=== PATIENT | female | born 1940 | race Caucasian/White ===

== ENCOUNTER → 2018-07-23 | Outpatient (CLI) | payer MEDICARE, BC, OTHER ==
--- NOTE | 2018-07-25 19:45 | HOLTMON ---
[facility] Test Date: 2018-07-23 Pat Name: KEN KENT Department: Room: - Gender: Scientific Technical Writer: Eleni Ash/JAVIER LAND : 1940 Requested By: [facility] Order Number: [id number] Reading MD: Mauro Rivas Interpretive Statements MOTHER-ANGINA Diary entries include an episode of dizziness and dyspnea and another episode of dyspnea climbing stairs; sinus rhythm seen with both episodes. Heart rate variability was normal. There were occasional rare PVC's and occasional PAC's with a couple of supraventricular runs with a maximum HR of 150; these were of short duration. No significant ST events or pauses. No atrial fibrillation was seen. Electronically Signed On 07-25-2018 19:45:43 EDT by Mauro Rivas
== END ==
LOC: M EKG 10:40
PROVIDERS: ATTEND Family Medicine
DX: Z86.79 Personal history of other diseases of the circulatory system (principal)

== ENCOUNTER 2019-02-19 07:56 | Outpatient (RCR) | payer MEDICARE, BC, OTHER | END 2019-02-23 | LOC: M ST 07:56 | PROVIDERS: ATTEND Family Medicine | DX: Z51.89 Encounter for other specified aftercare (principal); R47.9 Unspecified speech disturbances; R47.81 Slurred speech ==

== ENCOUNTER 2019-03-05 14:50 | Outpatient (RCR) | payer MEDICARE, BC, OTHER | END 2019-03-26 | LOC: M ST 14:50 | PROVIDERS: ATTEND Family Medicine | DX: Z51.89 Encounter for other specified aftercare (principal); R47.9 Unspecified speech disturbances; R47.89 Other speech disturbances ==

== ENCOUNTER 2023-05-14 16:24 | Inpatient (IN) | payer MEDICARE, BC, OTHER ==
[~2023-05-14] VITALS: Ht 172.7 cm; Wt 77.4 kg
[2023-05-14] MEDS: ASPIRIN 81MG CHEW TABLET PO ONE (17:23)
[2023-05-14] MEDS: NS 500 ML IV ONE (17:24)
[2023-05-14] MEDS: methylPREDNISolone 125MG 2ML VIAL IV ONE (17:24)
[2023-05-14 17:33] LABS: ABG BASE EXCESS 1.8 (-2.0-2.0); ABG HCO3 24.6 MMOL/L (22.0-26.0); ABG PARTIAL PRESSURE CO2 33.1 mmHg (35.0-45.0); ABG PARTIAL PRESSURE O2 64.5 mmHg (75.0-100.0); ABG TOTAL CO2 25.6 MMOL/L (23.0-31.0); ABG pH (ARTERIAL) 7.489 UNITS (7.350-7.450)
[2023-05-14 17:42] LABS: BASO % 0.1 % (0.0-1.0); HEMATOCRIT 39.6 % (36.0-47.0); HEMOGLOBIN 13.6 g/dl (12.0-15.5); LYMPH # 0.9 10^3/uL (1.5-5.0); LYMPH % 10.8 % (24.0-44.0); MEAN CORPUSCULAR HEMOGLOBIN 31.5 pg (27.0-33.0); MEAN CORPUSCULAR HGB CONC 34.3 g/dl (32.0-36.5); MEAN CORPUSCULAR VOLUME 91.7 fl (80.0-96.0); MONO # 0.7 10^3/uL (0.0-0.8); MONO % 9.4 % (2.0-8.0); NEUTROPHILS # 6.3 10^3/uL (1.5-8.5); NEUTROPHILS % 79.4 % (36.0-66.0); PLATELET COUNT, AUTOMATED 185 10^3/uL (150-450); RED BLOOD COUNT 4.32 10^6/uL (4.00-5.40); WHITE BLOOD COUNT 7.9 10^3/uL (4.0-10.0)
[2023-05-14 17:49] LABS: ALBUMIN 3.2 G/DL (3.2-5.2); ALKALINE PHOSPHATASE 84 U/L (46-116); ALT/SGPT 21 U/L (7.0-40); AST/SGOT 17 U/L (<34); BILIRUBIN,DIRECT 0.3 MG/DL (<0.4); BILIRUBIN,TOTAL 0.8 MG/DL (0.3-1.2); BLOOD UREA NITROGEN 10 MG/DL (9-23); CALCIUM LEVEL 9.5 MG/DL (8.3-10.6); CARBON DIOXIDE LEVEL 26 MMOL/L (20-31); CHLORIDE LEVEL 102 MMOL/L (98-107); CK-MB VALUE MASS 1.1 NG/ML (<3.6); CPK CREATINE PHOSPHOKINASE 101 U/L (34-145); GLOMERULAR FILTRATION RATE > 60.0 (>32); GLUCOSE, FASTING 122 MG/DL (74-106); MAGNESIUM LEVEL 1.5 MG/DL (1.8-2.4); MB/CK RELATIVE INDEX 1.08 (< OR =4); POTASSIUM SERUM 3.7 MMOL/L (3.5-5.1); SODIUM LEVEL 136 MMOL/L (136-145); TOTAL PROTEIN 6.4 G/DL (5.7-8.2)
[2023-05-14 17:51] LABS: THYROID STIMULATING HORMONE 1.024 uIU/ML (0.55-4.78); THYROXINE (T4) 7.2 UG/DL (4.5-10.9)
[2023-05-14 17:54] VITALS: BP 140/71
[2023-05-14] MEDS: METOPROLOL TART 25 MG TABLET PO ONE (17:54)
[2023-05-14 18:00] LABS: PROCALCITONIN 0.06 ng/ml
[2023-05-14 18:52] LABS: CK-MB VALUE MASS 1.1 NG/ML (<3.6)
[2023-05-14 18:54] LABS: MB/CK RELATIVE INDEX 1.18 (< OR =4)
[2023-05-14] MEDS: MAG SULF 1GM/100ML (MAG RUN) 1 GM in IV 1 EA IV SCH (19:37)
[2023-05-14] MEDS ORDERED: MAALOX 30 ML SUSP *UDC PO PRN (20:00)
[2023-05-14] MEDS ORDERED: LEVALBUTEROL HFA 45MCG/ACT 15GM INHALER INH PRN (20:00)
[2023-05-14] MEDS ORDERED: MOM 30ML SUSPENSION UDC PO PRN (20:00)
[2023-05-14] MEDS ORDERED: THERTAB52 PO (20:03)
[2023-05-14] MEDS ORDERED: CALCCAP4 PO (20:03)
[2023-05-14] MEDS ORDERED: OSEL75CA2 PO (20:03)
[2023-05-14] MEDS ORDERED: ATOR40TA75 PO (20:03)
[2023-05-14] MEDS ORDERED: HOME MED LIST COMPLETE! XX SCH (20:05)
[2023-05-14] MEDS: NS 1,000 ML IV SCH (20:47)
[2023-05-14 21:15] VITALS: BP 116/79; TEMP 97.2
[2023-05-14 21:30] VITALS: BP 116/71
[2023-05-14] MEDS: HEPARIN SOD (PORCINE) 5000UNITS/ML 1ML VIAL/SYRINGE SC SCH (22:10)
[2023-05-14] MEDS: OSELTAMIVIR PHOSPHATE 75 MG CAP (TAMIFLU) PO SCH (22:11)
[2023-05-14] MEDS: ACETAMINOPHEN TAB 650MG DOSE (2X325MG) PO PRN (22:12)
[2023-05-14] MEDS: DEXTROMETHORPHAN 60MG/10ML SUSP 90ML BTL(DELSYM) PO PRN (23:24)
[2023-05-15 03:44] VITALS: BP 113/82; TEMP 96.8; O2SAT 97
[2023-05-15 05:39] LABS: HEMATOCRIT 37.3 % (36.0-47.0); HEMOGLOBIN 12.5 g/dl (12.0-15.5); MEAN CORPUSCULAR HEMOGLOBIN 31.3 pg (27.0-33.0); MEAN CORPUSCULAR HGB CONC 33.5 g/dl (32.0-36.5); MEAN CORPUSCULAR VOLUME 93.5 fl (80.0-96.0); PLATELET COUNT, AUTOMATED 185 10^3/uL (150-450); RED BLOOD COUNT 3.99 10^6/uL (4.00-5.40); WHITE BLOOD COUNT 7.6 10^3/uL (4.0-10.0)
[2023-05-15 06:07] LABS: BLOOD UREA NITROGEN 10 MG/DL (9-23); CALCIUM LEVEL 8.3 MG/DL (8.3-10.6); CARBON DIOXIDE LEVEL 27 MMOL/L (20-31); CHLORIDE LEVEL 107 MMOL/L (98-107); CREATININE FOR GFR 0.46 MG/DL (0.55-1.30); GLOMERULAR FILTRATION RATE > 60.0 (>32); GLUCOSE, FASTING 143 MG/DL (74-106); MAGNESIUM LEVEL 1.9 MG/DL (1.8-2.4); POTASSIUM SERUM 4.2 MMOL/L (3.5-5.1); SODIUM LEVEL 140 MMOL/L (136-145)
[2023-05-15 06:14] LABS: PROCALCITONIN 0.04 ng/ml
[2023-05-15] MEDS: PANTOPRAZOLE 40MG TAB (PROTONIX) PO SCH (08:15)
[2023-05-15] MEDS: predniSONE 20 MG TAB PO SCH (08:15)
[2023-05-15] MEDS: ATORVASTATIN 20 MG TAB PO SCH (12:19)
[2023-05-15 14:00] VITALS: BP_SYST 118; BP_SYST 137; BP_DIAS 54; BP_DIAS 71; TEMP 97.5; O2SAT 95
[2023-05-15 15:52] VITALS: O2SAT 94
[2023-05-15 18:53] VITALS: O2SAT 93
[2023-05-15 21:35] VITALS: BP 119/70; TEMP 97.5; O2SAT 92
[2023-05-16 06:07] LABS: HEMATOCRIT 36.4 % (36.0-47.0); MEAN CORPUSCULAR HEMOGLOBIN 30.8 pg (27.0-33.0); MEAN CORPUSCULAR VOLUME 93.3 fl (80.0-96.0); PLATELET COUNT, AUTOMATED 216 10^3/uL (150-450); WHITE BLOOD COUNT 9.3 10^3/uL (4.0-10.0)
[2023-05-16 06:30] VITALS: BP 117/70; TEMP 97.5; O2SAT 94
[2023-05-16 06:37] LABS: BLOOD UREA NITROGEN 14 MG/DL (9-23); CALCIUM LEVEL 8.3 MG/DL (8.3-10.6); CARBON DIOXIDE LEVEL 30 MMOL/L (20-31); CHLORIDE LEVEL 105 MMOL/L (98-107); CREATININE FOR GFR 0.57 MG/DL (0.55-1.30); GLOMERULAR FILTRATION RATE > 60.0 (>32); GLUCOSE, FASTING 86 MG/DL (74-106); MAGNESIUM LEVEL 1.6 MG/DL (1.8-2.4); POTASSIUM SERUM 3.5 MMOL/L (3.5-5.1); SODIUM LEVEL 140 MMOL/L (136-145)
[2023-05-16] MEDS: MAGNESIUM OXIDE 400MG TAB (MAG-OX) PO ONE (10:14)
[2023-05-17] MEDS ORDERED: DOXY-443 PO (22:40)
[2023-05-17] MEDS ORDERED: VENTAER INH (22:40)
== END 2023-05-16 11:03 | disposition home or self-care (01) | DRG 195 ==
LOC: M ED 16:24 → M ED INP 19:57 → M MSPAV 21:13
PROVIDERS: ADMIT Family Medicine; ATTEND Internal Medicine
DX: J10.1 Influenza due to other identified influenza virus with other respiratory manifestations (principal); E78.5 Hyperlipidemia, unspecified; J20.9 Acute bronchitis, unspecified; E83.42 Hypomagnesemia; R00.0 Tachycardia, unspecified; Z88.2 Allergy status to sulfonamides; Z85.3 Personal history of malignant neoplasm of breast; Z85.51 Personal history of malignant neoplasm of bladder; Z79.899 Other long term (current) drug therapy; Z90.11 Acquired absence of right breast and nipple; Z90.12 Acquired absence of left breast and nipple

== ENCOUNTER 2023-05-17 16:44 | Emergency (ER) | payer MEDICARE, BC, OTHER ==
[~2023-05-17] VITALS: Ht 172.7 cm; Wt 79.1 kg
[~2023-05-17 16:44] MED LIST: ATOR40TA75 PO; CALCCAP4 PO; OSEL75CA2 PO; THERTAB52 PO
[2023-05-17 20:21] LABS: BASO % 0.1 % (0.0-1.0); EOS % 0.1 % (0.0-3.0); LYMPH # 1.1 10^3/uL (1.5-5.0); LYMPH % 11.6 % (24.0-44.0); MEAN CORPUSCULAR HEMOGLOBIN 30.4 pg (27.0-33.0); MEAN CORPUSCULAR HGB CONC 33.3 g/dl (32.0-36.5); MEAN CORPUSCULAR VOLUME 91.3 fl (80.0-96.0); MONO # 0.8 10^3/uL (0.0-0.8); MONO % 8.2 % (2.0-8.0); NEUTROPHILS # 7.3 10^3/uL (1.5-8.5); NEUTROPHILS % 79.5 % (36.0-66.0); PLATELET COUNT, AUTOMATED 282 10^3/uL (150-450); RED BLOOD COUNT 4.27 10^6/uL (4.00-5.40); WHITE BLOOD COUNT 9.2 10^3/uL (4.0-10.0)
[2023-05-17] MEDS: ALBUTEROL SULFATE 2.5MG/0.5ML INH NEB SOLN NEB ONE (20:26)
[2023-05-17 20:33] LABS: INR 0.97; PROTHROMBIN TIME 12.6 SECONDS (12.5-14.5)
[2023-05-17 20:34] LABS: PARTIAL THROMBOPLASTIN TIME 26.3 SECONDS (24.8-34.2)
[2023-05-17 21:03] LABS: ALBUMIN 3.1 G/DL (3.2-5.2); ALKALINE PHOSPHATASE 81 U/L (46-116); ALT/SGPT 25 U/L (7.0-40); AST/SGOT 19 U/L (<34); BILIRUBIN,DIRECT 0.2 MG/DL (<0.4); BILIRUBIN,TOTAL 0.7 MG/DL (0.3-1.2); BLOOD UREA NITROGEN 11 MG/DL (9-23); CALCIUM LEVEL 8.6 MG/DL (8.3-10.6); CARBON DIOXIDE LEVEL 28 MMOL/L (20-31); CHLORIDE LEVEL 103 MMOL/L (98-107); CREATININE FOR GFR 0.53 MG/DL (0.55-1.30); GLOMERULAR FILTRATION RATE > 60.0 (>32); GLUCOSE, FASTING 100 MG/DL (74-106); POTASSIUM SERUM 4.1 MMOL/L (3.5-5.1); SODIUM LEVEL 137 MMOL/L (136-145); TOTAL PROTEIN 6.2 G/DL (5.7-8.2)
[2023-05-17] MEDS ORDERED: ISOVUE-370 76% 100ML VIAL As Ordered ONE (21:13)
[2023-05-17] MEDS: cefTRIAXone SOD 1 GM in D5W MINI-BAG PLUS 50 ML IV ONE (21:52)
[2023-05-17] MEDS: DOXYCYCLINE HYCLATE 100MG TABLET PO ONE (21:52)
[2023-05-17 22:30] VITALS: O2SAT 93
[2023-05-17 22:37] VITALS: BP 121/75; TEMP 97.9; O2SAT 94
[2023-05-17] MEDS ORDERED: VENTAER INH (22:40)
[2023-05-17] MEDS ORDERED: DOXY-443 PO (22:40)
== END 2023-05-17 22:48 | disposition home or self-care (01) ==
LOC: M ED 16:44
DX: J18.9 Pneumonia, unspecified organism (principal); E78.5 Hyperlipidemia, unspecified; Z87.19 Personal history of other diseases of the digestive system; Z85.3 Personal history of malignant neoplasm of breast; Z79.899 Other long term (current) drug therapy; Z88.2 Allergy status to sulfonamides
CPT/HCPCS: 71046; 71275; 80048; 80076; 85025; 85610; 85730; 93005; 93971; 94640; 96365; 99284; J0696; Q9967

== ENCOUNTER → 2023-05-29 | Outpatient (CLI) | payer MEDICARE, BC ==
[~2023-05-29] MED LIST changes: +DOXY-443 PO; +VENTAER INH
== END ==
LOC: M PLAIMG 12:03
PROVIDERS: ATTEND Family Medicine
DX: R06.02 Shortness of breath (principal)